=== PATIENT | female | born 2000 | race Caucasian/White ===

== ENCOUNTER 2022-09-15 19:01 | Emergency (ER) | payer BC, SELFPAY ==
[2022-09-15 19:16] VITALS: BP 128/82; PULSE 73; RESP 16; TEMP 36.6; O2SAT 100
--- NOTE | 2022-09-15 19:30 | DI.CT_ITS ---
Exam(s) CT ABDOMEN PELVIS W EXAM: CT ABDOMEN PELVIS W CLINICAL HISTORY: abdominal pain, periumbilical. TECHNIQUE: Imaging Protocol: Axial computed tomography images with coronal and sagittal reformatted images were created and reviewed CONTRAST MATERIAL: Intravenous: Omnipaque-350 100cc Oral: None COMPARISON: No exams were available for comparison FINDINGS: VISUALIZED LUNG BASES: There is a subpleural nodule in the lateral basal segment of the left lower lo be which measures 5 millimeters. No pleural effusions.. ABDOMEN: There is no ascites. LIVER: There are no focal hepatic lesions evident . GALLBLADDER/BILIARY: No obvious gallbladder pathology. CBD is not dilated. PANCREAS: No evidence of pancreatic mass nor dilatation of the pancreatic duct. SPLEEN: Spleen is not enlarged. No obvious intrasplenic lesions. Splenic and portal veins are paten t. ADRENALS: There are no significant adrenal masses. KIDNEYS:No cysts evident. No solid renal masses. No calculi nor hydronephrosis.. ABDOMINAL AORTA: Abdominal aorta is not enlarged. LYMPH NODES:There is no retroperitoneal nor paraaortic adenopathy. ABDOMINAL WALL: No evidence of significant anterior abdominal wall nor inguinal hernia. GI: There are fluid filled small bowel loops in the pelvis which exhibit upper normal luminal size.. No true bowel obstruction evident. PELVIS: GI: No evidence of appendicitis.No evidence of sigmoid diverticulitis. LYMPH NODES: There is no intrapelvic nor inguinal adenopathy. REPRODUCTIVE: There is no IUD in satisfactory position in the uterine canal. No abnormal adnexal mas ses. No free fluid. URINARY BLADDER: No calculi nor obvious masses evident OSSEOUS: No significant osseous lesions. IMPRESSION: 1. No significant acute findings in the abdomen pelvis. 2. IUD noted in the uterus which appears to be in satisfactory position no abnormal adnexal masses. No free fluid. 3. Incidentally noted is a small 5 millimeters subpleural nodule in the left lower lobe lateral basal segment. Requires appropriate follow-up. 4. RADIATION DOSE DELIVERED: 628.07mGy.cm Total DLP DATA REPOSITORY: All CT scans at this facility are submitted to the National Radiology Data Registry (NRDR) Dose Index Registry (DIR) with the [employer] ([employer]). RADIATION OPTIMIZATION: All CT scans at this facility use at least one of these dose optimization te chniques: automated exposure control; mA and/or kV adjustment per patient size (includes targeted exa ms where dose is matched to clinical indication); or iterative reconstruction.
[2022-09-15] MEDS: MORPHine 4 MG/ML SYR IVP (20:22)
[2022-09-15] MEDS: Normal Saline 1,000 ML 1000 ML IV (20:22)
[2022-09-15] MEDS: Ondansetron 4 MG/2 ML VIAL IVP ×2 (20:23→22:39)
[2022-09-15 20:26] LABS: Abs Immature Grans 0.05 10^3/uL (0.0-0.06); Absolute Basophil Count 0.03 10^3/uL (0.0-0.2); Absolute Eosinophil Count 0.05 10^3/uL (0.0-0.7); Absolute Lymphocyte Count 1.03 10^3/uL (1.2-3.4); Absolute Monocyte Count 0.72 10^3/uL (0.1-0.8); Basophils % 0.2; Eosinophils % 0.3; HCT 44.2 % (36.0-46.0); HGB 14.8 g/dL (11.2-15.7); Immature Grans % 0.3; MCH 29.8 pg (27.0-33.0); MCHC 33.5 % (32.0-36.0); MCV 89 fL (80-95); Monocytes % 4.2; RBC 4.96 10^6/uL (3.93-5.22); RDW 11.8 % (11.7-14.6); RDW-SD 37.6 fL; WBC 17.14 10^3/uL (4.4-10.8)
[2022-09-15 20:31] LABS: Absolute Neutrophil Count 15.25 10^3/uL (1.2-6.7)
[2022-09-15 20:32] LABS: Bilirubin Negative (Negative); Blood Trace-intact (Negative); Clarity Clear (Clear); Glucose Negative (Negative); Ketones Negative (Negative); Leukocyte Esterase Negative (Negative); Nitrite Negative (Negative); Specific Gravity >= 1.030 (1.005-1.025)
[2022-09-15 20:36] LABS: Bacteria Rare HPF (Negative); C & S Indicated? No; Casts Negative LPF (Negative); Crystals Negative HPF (Negative); Epithelial Cells Rare HPF (Negative); Mucus Moderate (Negative); WBC Negative HPF (0-5)
[2022-09-15 20:41] LABS: ALT 28 U/L (14-59); AST 20 U/L (15-37); Albumin 4.1 g/dL (3.4-5.0); Alkaline Phosphatase 91 U/L (46-116); Anion Gap 7.3 mmol/L (3-11); BUN 9 mg/dL (7-18); Bilirubin, Total 1.3 mg/dL (0.2-1.0); CO2 30.7 mmol/L (21.0-32.0); CREATININE 0.9 mg/dL (0.55-1.02); Calcium 8.8 mg/dL (8.5-10.1); Chloride 101 mmol/L (98-107); Estimated GFR 92.12 (mL/min/1.73m2); Glucose 105 mg/dL (74-106); Lipase 52 U/L (73-393); Potassium 3.1 mmol/L (3.5-5.1); Sodium 139 mmol/L (136-145); Total Protein 7.7 g/dL (6.4-8.2)
[2022-09-15 20:48] VITALS: BP 133/81; PULSE 50; RESP 16; O2SAT 98
[2022-09-15] MEDS: Normal Saline - Diluent 50 ML VIAL IJ (20:57)
[2022-09-15] MEDS: Omnipaque 350 MG/ML 100 ML BTL IJ (20:57)
--- NOTE | 2022-09-15 21:19 | DI.VRAD_ITS ---
PROCEDURE INFORMATION: Exam: CT Abdomen And Pelvis With Contrast Exam date and time: 09/15/2022 20:51 Age: 22 years old Clinical indication: Abdominal pain; Localized; Lower; Additional info: Lower abd pain TECHNIQUE: Imaging protocol: Computed tomography of the abdomen and pelvis with contrast. Radiation optimization: All CT scans at this facility use at least one of these dose optimization techniques: automated exposure control; mA and/or kV adjustment per patient size (includes targeted exams where dose is matched to clinical indication); or iterative reconstruction. Contrast material: OMNI 350; Contrast volume: 100 ml; Contrast route: INTRAVENOUS (IV); COMPARISON: No relevant prior studies available. FINDINGS: Liver: No mass. Gallbladder and bile ducts: No calcified stones. No ductal dilation. Pancreas: No ductal dilation. No masses. Spleen: No splenomegaly or focal lesions. Adrenal glands: No mass. Kidneys and ureters: No hydronephrosis. No renal masses. Stomach and bowel: Mildly fluid-filled loops of distal small bowel without wall thickening or focal transition point. No colitis or diverticular disease. Appendix: No evidence of appendicitis. Intraperitoneal space: No free air. No significant fluid collection. Vasculature: No abdominal aortic aneurysm. Lymph nodes: No significantly enlarged lymph nodes. Urinary bladder: Unremarkable as visualized. Reproductive: IUD in the uterus in the expected position. Bones/joints: No acute fracture. Soft tissues: No suspicious lesions. IMPRESSION: 1. No acute findings. 2. Incidental findings as described. Dictated and Authenticated by: Margret Lugo MD. Ordering:FRANSISCO Willard MD
--- NOTE | 2022-09-15 22:17 | W.ED.GENAD ---
Discharge Plan Disposition Patient Disposition: Home Condition: Stable Discharge Details Clinical Impression: Abdominal pain, Nausea & vomiting Primary Care Provider: None,None ED Provider: Montse Alexander Home Meds and New Rx's Prescriptions: New potassium chloride 20 mEq tablet extended release 40 meq PO DAILY Qty: 6 0RF Discharge Instructions Instructions: Acute Nausea and Vomiting (ED), Abdominal Pain (ED), Pulmonary Nodules (ED) Additional Instructions: Take Zofran as needed for nausea and vomiting Is given a very small amount of oxycodone, take this sparingly can cause constipation Take ibuprofen and Tylenol for pain Take potassium tomorrow if you are feeling symptomatically improved Recheck with your primary care physician in 24 to 48 hours and return earlier should you have new or worsening complaints Stand Alone Forms: Work Release Discharge Data Discharge Date/Time-TO BE ENTERED AT DEPARTURE: 09/15/22 22:30 Medical Decision Making This 22-year-old female who is otherwise reportedly healthy presents with report of periumbilical pain, nausea, vomiting. States the pain started prior to nausea and vomiting. Denies any change in discomfort since onset Patient appears uncomfortable She has tenderness in the periumbilical region Secondary to symptoms and tenderness on abdominal exam, CT abdomen and pelvis was ordered to evaluate for intra-abdominal pathology CT per radiology interpretation 1. No significant acute findings in the abdomen pelvis. 2. IUD noted in the uterus which appears to be in satisfactory position no abnormal adnexal masses.? No free fluid. 3. Incidentally noted is a small 5 millimeters subpleural nodule in the left lower lobe lateral basal segment.? Requires appropriate follow-up. Patient is feeling marked improvements She is able to tolerate p.o. She is requesting discharge home She does have leukocytosis, 17,000, mildly elevated bilirubin, however normal-appearing CT scan and feeling improvement, I see no indication for admission at this time, will give antiemetics for home Potassium slightly low at 3.1, given supplementation for home Reviewed findings nodule in the left lower lobe with need for follow-up, will refer back to primary care physician Return precautions discussed and patient expressed understanding Medical Records Medical records reviewed: Yes I reviewed the patient's medical records. Lab Data Lab results reviewed: Yes I reviewed the patient's lab results. HPI General Date/Time Provider Initiated Documentation: 09/15/22 19:35. HPI Narrative: This 22-year-old female presents with abdominal pain that started yesterday. Reports its periumbilical. Having trouble keeping foods down. Headache started today. Denies fever. Denies . Related Data Home Medications Medication Instructions Recorded Confirmed potassium chloride 20 mEq 40 meq PO DAILY #6 tabs 09/15/22 tablet,extended release Previous Rx's Medication Instructions Recorded potassium chloride 20 mEq 40 meq PO DAILY #6 tabs 09/15/22 tablet,extended release General Stated Complaint: Abd Prob NIRAJ: 3 Review of Systems All systems reviewed & are unremarkable except as noted in HPI and below PFSH All Active Problems (Updated 09/15/22 @ 22:05 by GABRIEL Gray) Abdominal pain (Acute) Nausea & vomiting (Acute) Social History Smoking risk assessment performed?: No Alcohol Intake: never Drug use: Daily Substance use type: marijuana Do you feel safe at home: Yes Do you feel safe in your relationship?: Yes Exam Const General: cooperative, comfortable and no acute distress HENMT Other: moist mucous membranes Eyes Sclera: sclerae normal Resp Effort & Inspection: normal respiratory effort Auscultation: clear to auscultation bilaterally Cardio Rate: regular rate Rhythm: regular rhythm GI Inspection: normal to inspection Other: Periumbilical tenderness with palpation, no CVA tenderness Skin General skin exam: no rashes or lesions noted Neuro General: patient alert and patient oriented x3 Course Vital Signs Vital signs: Vital Signs Temperature 36.6 C 09/15/22 19:16 Pulse 73 09/15/22 19:16 Respiratory Rate 16 09/15/22 19:16 Blood Pressure 128/82 09/15/22 19:16 Pulse Oximetry 100 09/15/22 19:16 Temperature 36.6 C 09/15/22 19:16 Temperature Source Oral 09/15/22 19:16 Pulse 50 L 09/15/22 20:48 Respiratory Rate 16 09/15/22 20:48 Respiratory Effort 09/15/22 19:23 Blood Pressure 133/81 09/15/22 20:48 Blood Pressure Position Sitting 09/15/22 19:16 Pulse Oximetry 98 09/15/22 20:48 Oxygen Delivery Method Room Air 09/15/22 20:48 Oxygen Flow Rate 0 09/15/22 20:48 Pain Level 6 09/15/22 20:50 Lab/Test Results Lab/Test Results: Laboratory Tests Range/Units 09/15/22 09/15/22 09/15/22 20:03 20:15 20:15 WBC (4.4-10.8) 10^3/uL 17.14 H RBC (3.93-5.22) 10^6/uL 4.96 Hgb (11.2-15.7) g/dL 14.8 Hct (36.0-46.0) % 44.2 MCV (80-95) fL 89 MCH (27.0-33.0) pg 29.8 MCHC (32.0-36.0) % 33.5 RDW (11.7-14.6) % 11.8 Plt Count (130-400) 10^3/uL MPV (8.0-11.0) fL Immature Gran % 0.3 Neutrophils % 89.0 Lymphocytes % 6.0 Monocytes % 4.2 Eosinophils % 0.3 Basophils % 0.2 Nucleated RBC % (0.0-0.3) % 0.0 Absolute Neutrophils (1.2-6.7) 10^3/uL 15.25 H Absolute Lymphocytes (1.2-3.4) 10^3/uL 1.03 L Absolute Monocytes (0.1-0.8) 10^3/uL 0.72 Absolute Eosinophils (0.0-0.7) 10^3/uL 0.05 Absolute Basophils (0.0-0.2) 10^3/uL 0.03 Sodium (136-145) mmol/L 139 Potassium (3.5-5.1) mmol/L 3.1 L Chloride (98-107) mmol/L 101 Carbon Dioxide (21.0-32.0) mmol/L 30.7 Anion Gap (3-11) mmol/L 7.3 BUN (7-18) mg/dL 9 Creatinine (0.55-1.02) mg/dL 0.9 Est GFR (CKD-EPI 2020) (mL/min/1.73m2) 92.12 Glucose (74-106) mg/dL 105 Calcium (8.5-10.1) mg/dL 8.8 Total Bilirubin (0.2-1.0) mg/dL 1.3 H AST (15-37) U/L 20 ALT (14-59) U/L 28 Alkaline Phosphatase (46-116) U/L 91 Total Protein (6.4-8.2) g/dL 7.7 Albumin (3.4-5.0) g/dL 4.1 Lipase (73-393) U/L 52 Urine Color (Yellow) Yellow Urine Clarity (Clear) Clear Urine pH (5-8) 6.0 Ur Specific [place] (1.005-1.025) >= 1.030 H Urine Protein (Negative) mg/dL 30 H Urine Ketones (Negative) mg/dL Negative Urine Blood (Negative) Trace-intact H Urine Nitrite (Negative) Negative Urine Bilirubin (Negative) Negative Urine Urobilinogen (Up TO 0.2) EU/dL 1.0 H Ur Leukocyte Esterase (Negative) Negative Urine RBC (0-2) HPF 3-5 H Urine WBC (0-5) HPF Negative Ur Epithelial Cells (Negative) HPF Rare Urine Crystals (Negative) HPF Negative Urine Bacteria (Negative) HPF Rare Urine Casts (Negative) LPF Negative Urine Mucus (Negative) Moderate Ur Culture Indicated? No Urine Glucose (Negative) mg/dL Negative
[2022-09-15 22:19] VITALS: BP 133/74; PULSE 56; RESP 16; TEMP 37; O2SAT 99
[2022-09-15] MEDS: Ketorolac 15 MG/ML VIAL IM (22:38)
== END 2022-09-15 22:30 | disposition home or self-care (01) ==
PROVIDERS: Emergency Provider Physician Assistant
DX: R10.33 Periumbilical pain (principal); R11.2 Nausea with vomiting, unspecified
CPT/HCPCS: 80053; 83690; 96361; 96372; 96374; 96375; 96376; 99285; 74177; 81003; 81015; 85025; 99284; J1885; J2270; J2405; J3490

== ENCOUNTER 2023-03-11 20:37 | Emergency (ER) | payer BC, SELFPAY ==
[2023-03-11 20:39] VITALS: BP 142/80; PULSE 91; RESP 18; TEMP 36.6; O2SAT 96
--- NOTE | 2023-03-11 20:45 | DI.RAD_ITS ---
Exam(s) XR CHEST 2V PA LATERAL EXAM: XR CHEST 2V PA LATERAL CLINICAL HISTORY: cough, eval for pneumonia TECHNIQUE: 2D digital imaging was performed of the chest. Two images were obtained. PA and lateral views were obtained. COMPARISON: No exams were available for comparison FINDINGS: MEDIASTINUM: Normal. HEART: Normal. PULMONARY VASCULATURE: Normal. LUNGS: Clear. PLEURAL SPACE: No pleural effusion or pneumothorax. BONE:Within normal limits for the patient's age. OTHER FINDINGS:Normal. IMPRESSION: No acute pulmonary findings. DATA REPOSITORY: RADIATION DOSE DELIVERED:
--- NOTE | 2023-03-11 20:51 | NUR.NOTE ---
Nursing Note: rapid strep neg flu-vid swab done pt in room, states hx of pna and that it only shows on x-ray even if her lungs sound clear pt speaking in full sentences
--- NOTE | 2023-03-11 20:56 | ED.GENADUL_ITS ---
Discharge Plan Disposition Patient Disposition: Home Condition: Good Discharge Details Clinical Impression: Acute upper respiratory infection, Cough Primary Care Provider: None,None ED Provider: Reid Deal Home Meds and New Rx's Prescriptions: New azithromycin 250 mg tablet See Rx Instructions .ROUTE .COMPLEX Qty: 6 0RF Rx Instructions: For 250 mg dose pack: take 500 mg today (day 1), then 250 mg for 4 days (days 2-5) No Action potassium chloride 20 mEq tablet extended release 40 meq PO DAILY Qty: 6 0RF Discharge Instructions Instructions: Upper Respiratory Infection (ED) Additional Instructions: At this time your COVID, flu, and RSV testing is negative. There is no evidence of significant infection noted on the x-ray. I suspect it is a virus causing your symptoms at this time. We will recommend continue Tylenol and Motrin for fever or chills. Recommend [id number] 10 mg of loratadine daily for treatment of the runny nose and congestion. Additionally if your symptoms persist over the next 48 to 72 hours then this may be reflective of development into a bacterial pneumonia. If you do notice worsening of your symptoms, please take the azithromycin as prescribed. If you notice any worsening of your symptoms, or any new symptoms such as vomiting, diarrhea, fever, chills, shortness of breath, chest pain, numbness, weakness, or fainting , please return immediately to the emergency department for reevaluation. Please follow up with your primary care provider as soon as possible for reassessment and reevaluation. As always, it was a pleasure participating in your medical care today. Medical Decision Making 23-year-old female with a past medical history of reactive airway disease, and previous walking pneumonia, presents today with complaints of upper respiratory symptoms. Patient states that about 3 days ago she developed sore throat congestion runny nose chills which gradually transition to a cough starting yesterday. She denies any significant productivity. She denies any chest pain. She denies any headache or neck pain. She did take a COVID test yesterday which was negative. She does work for [employer], but denies any sick contacts that she is aware of. She states that the symptoms are similar to her previous episodes of walking pneumonia. No other complaints at this time. No other modifying factors. Patient denies any current . has had a vasectomy. Exam demonstrates well-appearing female, lung sounds are clear, oxygenation excellent. Posterior pharynx demonstrates cobblestoning. No evidence of otitis media. No other abnormalities clinically. Differential includes viral upper respiratory infection leading to mild postnasal drip and cough, pneumonia is also on the differential. Symptoms inconsistent with PE or dissection. No evidence of tonsillitis. We will get a chest x-ray, test for flu COVID RSV and strep, monitor closely and reassess. 9:48 PM Laboratory work-up demonstrates negative COVID/flu/RSV. Strep test is negative. Chest x-ray negative for acute process. No evidence of pneumonia. With the patient's clinical history and current symptomatology I am concerned for early mild pneumonia. What we will do at this point is recommend continued supportive therapy, but I will give the patient a prescription for azithromycin from use. If her symptoms persist or worsen over the next 48 to 72 hours and will recommend transition to antibiotic therapy. In the meantime we will recommend loratadine, Tylenol and Motrin as needed. Discussed red flags for which to return. Patient otherwise notably stable. Symptoms inconsistent with PE. No evidence of sepsis. I have extensively reviewed the treatment plan and discharge instructions with the patient and their family. I have addressed all patient concerns at this time. The patient and family was made aware of what symptoms to monitor for that would warrant a return to the emergency department. Discussed the plan with the patient and family, they demonstrate verbal understanding and agreement with our assessment and plan at this time. The documentation in this chart was dictated using [employer] dictation software. Please excuse any dictation errors. FINDINGS: Lungs: Normal. Pleural spaces: Unremarkable. No pleural effusion. No pneumothorax. Heart/Mediastinum: Normal. Bones/joints: No acute abnormality. IMPRESSION: No acute findings. Thank you for allowing us to participate in the care of your patient. Dictated and Authenticated by: Toan Camarillo MD 03/11/2023 9:38 PM Eastern Time ([place] & [place]) HPI General Date/Time Provider Initiated Documentation: 03/11/23 20:38 . HPI Narrative: 23-year-old female with a past medical history of reactive airway disease, and previous walking pneumonia, presents today with complaints of upper respiratory symptoms. Patient states that about 3 days ago she developed sore throat congestion runny nose chills which gradually transition to a cough starting yesterday. She denies any significant productivity. She denies any chest pain. She denies any headache or neck pain. She did take a COVID test yesterday which was negative. She does work for [employer], but denies any sick contacts that she is aware of. She states that the symptoms are similar to her previous episodes of walking pneumonia. No other complaints at this time. No other modifying factors. Patient denies any current . has had a vasectomy. Related Data Home Medications Medication Instructions Recorded Confirmed potassium chloride 20 mEq 40 meq PO DAILY #6 tabs 09/15/22 tablet,extended release azithromycin 250 mg tablet See Rx Instructions PO .COMPLEX #6 03/11/23 tabs Previous Rx's Medication Instructions Recorded potassium chloride 20 mEq 40 meq PO DAILY #6 tabs 09/15/22 tablet,extended release azithromycin 250 mg tablet See Rx Instructions PO .COMPLEX #6 03/11/23 tabs Allergies Allergy/AdvReac Type Severity Reaction Status Date / Time No Known Allergies Allergy Unverified 03/11/23 21:04 General Stated Complaint: RespSymp NIRAJ: 3 Review of Systems All systems reviewed & are unremarkable except as noted in HPI and below PFSH All Active Problems (Updated 03/11/23 @ 21:50 by Ried Deal DO) Acute upper respiratory infection (Acute) Cough (Acute) Social History Smoking/Tobacco Use Status: Current every day Tobacco Type: e-cigarettes and smokeless tobacco Smoking risk assessment performed?: Yes Alcohol Intake: never Drug use: Daily Substance use type: marijuana Do you feel safe at home: Yes Do you feel safe in your relationship?: Yes Exam Narrative Exam Narrative: 1.Const: Well-nourished, Well-developed, appearing stated age 2.Eyes: PERRL, no conjunctival injection, and symmetrical lids. 3.ENT: Atraumatic external nose and ears. Moist MM. Neck: Symmetric, trachea midline, No thyromegaly. Minimal cobblestoning in the posterior oropharynx. No tonsillar edema, enlargement or exudate. 4.CVS: +S1/S2, No murmurs or gallops. Peripheral pulses 2+ and equal in all extremities. Brisk capillary refill in all extremities. 5.RESP: Unlabored respiratory effort. Clear to auscultation bilaterally. No wheezes rales or rhonchi 6.GI: Soft, Nontender/Nondistended, No hepatosplenomegaly. No guarding or rebound. 7.MSK: Normocephalic/Atraumatic, Extremities w/o deformity or ttp No cyanosis or clubbing, Normal movement of all extremities 8.Skin: Warm, Dry. No rashes or lesions. 9.Neuro: broom stitcher II-XII grossly intact. Sensation grossly intact, no focal neurologic deficits. 10.Psych: (AAO) x3. Appropriate mood and affect Course Vital Signs Vital signs: Vital Signs Temperature 36.6 C 03/11/23 20:39 Pulse 91 H 03/11/23 20:39 Respiratory Rate 18 03/11/23 20:39 Blood Pressure 142/80 H 03/11/23 20:39 Pulse Oximetry 96 03/11/23 20:39 Temperature 36.6 C 03/11/23 20:39 Temperature Source Oral 03/11/23 20:39 Pulse 91 H 03/11/23 20:39 Respiratory Rate 18 03/11/23 20:39 Respiratory Effort Normal, Non-Labored, Short of Breath 03/11/23 20:48 Respiratory Depth Normal 03/11/23 20:48 Blood Pressure 142/80 H 03/11/23 20:39 Blood Pressure Position Sitting 03/11/23 20:39 Pulse Oximetry 96 03/11/23 20:39 Oxygen Delivery Method Room Air 03/11/23 20:39 Oxygen Flow Rate 0 03/11/23 20:39 Pain Level 6 03/11/23 20:39
--- NOTE | 2023-03-11 21:39 | DI.VRAD_ITS ---
PROCEDURE INFORMATION: Exam: XR Chest Exam date and time: 03/11/2023 9:14 PM Age: 23 years old Clinical indication: Cough; Patient HX: Evaluate for pneumonia TECHNIQUE: Imaging protocol: Radiologic exam of the chest. Views: 2 views. COMPARISON: CT ABDOMEN PELVIS W 09/15/2022 8:51 PM FINDINGS: Lungs: Normal. Pleural spaces: Unremarkable. No pleural effusion. No pneumothorax. Heart/Mediastinum: Normal. Bones/joints: No acute abnormality. IMPRESSION: No acute findings. Dictated and Authenticated by: Toan Camarillo MD. Ordering:BRITTANIE Mathews MD
[2023-03-11 21:50] LABS: COVID-19 PCR Negative (Negative); Influenza A PCR Negative (Negative); Influenza B PCR Negative (Negative); RSV PCR Negative (Negative)
[2023-03-11 21:51] LABS: Source Nasopharynx
== END 2023-03-11 22:01 | disposition home or self-care (01) ==
PROVIDERS: Emergency Provider Student in an Organized Health Care Education/Training Program
DX: R05.9 Cough, unspecified (principal); R06.02 Shortness of breath; J06.9 Acute upper respiratory infection, unspecified; Z20.822 Contact with and (suspected) exposure to COVID-19
CPT/HCPCS: 87637; 99284; 71046; 87081

== ENCOUNTER 2024-04-04 16:18 | Emergency (ER) | payer BC, SELFPAY ==
[2024-04-04 16:21] VITALS: BP 156/73; PULSE 74; RESP 18; TEMP 37.2; O2SAT 99
[2024-04-04] MEDS: Acetaminophen 500 MG TAB 1000 MG PO (16:38)
[2024-04-04] MEDS: Ibuprofen 600 MG TAB PO (16:38)
[2024-04-04] MEDS: LORazepam 1 MG TAB PO (16:39)
--- NOTE | 2024-04-04 16:53 | DI.RAD_ITS ---
Exam(s) XR THUMB RT EXAM: XR THUMB RT CLINICAL HISTORY: trauma distal thumb. TECHNIQUE: 2D digital imaging was performed. COMPARISON: No exams were available for comparison FINDINGS: 3 views There is nondisplaced fracture of the tuft of the distal phalanx of the thumb. No radiopaque foreign body. No osseous lesions. No other fractures identified. IMPRESSION: Nondisplaced fracture of the tuft of the distal phalanx of the thumb. DATA REPOSITORY: RADIATION DOSE DELIVERED:
--- NOTE | 2024-04-04 17:15 | DI.VRAD_ITS ---
PROCEDURE INFORMATION: Exam: XR Right Finger(s) Exam date and time: 04/04/2024 4:50 PM Age: 24 years old Clinical indication: Injury or trauma; Other: Caught hand in car door; Sprain or strain; Right; Patient HX: Slammed hand in car door. Trauma distal thumb. TECHNIQUE: Imaging protocol: Radiologic exam of the right fingers. Views: Minimum 2 views. COMPARISON: No relevant prior studies available. FINDINGS: Bones/joints: Possible nondisplaced fracture of the 1st distal tuft. Soft tissues: Soft tissue swelling of the thumb. IMPRESSION: Possible nondisplaced fracture 1st distal tuft. Dictated and Authenticated by: Kelly Vazquez MD. Ordering:FRANSISCO Willard MD
--- NOTE | 2024-04-04 17:36 | ED.GENADUL_ITS ---
Discharge Plan Disposition Patient Disposition: Home Condition: Stable Discharge Details Clinical Impression: Avulsion fracture of thumb, Hematoma, subungual, thumb, right Primary Care Provider: Unknown,Unknown ED Provider: Montse Alexander Home Meds and New Rx's Prescriptions: Continued sertraline 50 mg tablet 50 mg PO DAILY Discharge Instructions Instructions: Finger fracture, Bruising Under the Nail Additional Instructions: Take ibuprofen and Tylenol as needed for pain Keep clean and dry Keep your splint in place and follow-up with orthopedics Please return earlier should you have fever, chills, redness, or with any new or worsening complaints Discharge Data Discharge Date/Time-TO BE ENTERED AT DEPARTURE: 04/04/24 17:54 HPI General Date/Time Provider Initiated Documentation: 04/04/24 16:27 . HPI Narrative: This 24-year-old female presents with injury to right thumb after slamming a car door just prior to arrival. Denies any additional complaints. Tetanus up-to-date. Denies chance of . Related Data Home Medications Medication Instructions Recorded Confirmed sertraline 50 mg tablet 50 mg PO DAILY 04/04/24 04/04/24 Allergies Allergy/AdvReac Type Severity Reaction Status Date / Time No Known Allergies Allergy Unverified 03/11/23 21:04 General Stated Complaint: Orthopedic NIRAJ: 4 Exam Narrative Exam Narrative: Right first digit with subungual hematoma, swelling, tenderness, acute distress to tuft of thumb Course Vital Signs Vital signs: Vital Signs Temperature 37.2 C 04/04/24 16:21 Pulse 74 04/04/24 16:21 Respiratory Rate 18 04/04/24 16:21 Blood Pressure 156/73 H 04/04/24 16:21 Pulse Oximetry 99 04/04/24 16:21 Temperature 37.2 C 04/04/24 16:21 Temperature Source Tympanic 04/04/24 16:21 Pulse 74 04/04/24 16:21 Respiratory Rate 18 04/04/24 16:21 Respiratory Effort Normal, Non-Labored 04/04/24 16:54 Blood Pressure 156/73 H 04/04/24 16:21 Pulse Oximetry 99 04/04/24 16:21 Oxygen Delivery Method Room Air 04/04/24 16:21 Oxygen Flow Rate 0 04/04/24 16:21 Pain Level 10 04/04/24 16:55 Procedures Nail Trephination Time out: Yes Location (finger): right Location (toes): first digit Sterile prep: chlorhexidine Method of drainage: nail cautery Procedure successful: Yes Patient tolerated procedure: well Complications: bleeding Nerve Block Nerve Block 1: Time out performed: Yes Local Anesthetic: Bupivicaine 0.5% Side: right Nerve Blocks: digital Procedure Successful: Yes Patient Tolerated Procedure: well Complications: none Medical Decision Making 24-year-old female presenting with distal tuft injury after closing nail in door. X-ray was ordered which shows a distal tuft fracture. Tetanus up-to-date. Subungual hematoma drained after digital block with good effect with nail trephination. Return precautions reviewed and patient expressed understanding. Placed in a splint and referred to orthopedics Quality:SDOH Health Related Social Needs: No Data to Display PFSH All Active Problems (Updated 04/04/24 @ 17:39 by GABRIEL Gray) Hematoma, subungual, thumb, right (Acute) Avulsion fracture of thumb (Acute) Social History Smoking/Tobacco Use Status: Current every day Tobacco Type: e-cigarettes and smokeless tobacco Smoking risk assessment performed?: Yes Alcohol Intake: never Drug use: Daily Substance use type: marijuana Do you feel safe at home: Yes Do you feel safe in your relationship?: Yes
[2024-04-04 17:53] VITALS: BP 156/73; PULSE 74; RESP 18; TEMP 37.2; O2SAT 99
== END 2024-04-04 17:54 | disposition home or self-care (01) ==
PROVIDERS: Emergency Provider Physician Assistant
DX: S67.01XA Crushing injury of right thumb, initial encounter (principal); W23.0XXA Caught, crushed, jammed, or pinched between moving objects, initial encounter
CPT/HCPCS: 99283; 73140; J0665

== ENCOUNTER 2024-04-05 21:13 | Emergency (ER) | payer BC, SELFPAY ==
[2024-04-05 21:17] VITALS: BP 132/72; PULSE 100; RESP 15; TEMP 36.8; O2SAT 99
--- NOTE | 2024-04-05 21:31 | ED.GENADUL_ITS ---
Discharge Plan Disposition Patient Disposition: Home Condition: Stable Discharge Details Clinical Impression: Subungual hematoma of right thumb Primary Care Provider: Unknown,Unknown ED Provider: Reid Flowers Home Meds and New Rx's Prescriptions: Continued sertraline 50 mg tablet 50 mg PO DAILY acetaminophen [Tylenol Extra Strength] 500 mg tablet 1,000 mg PO Q6H PRN Discharge Instructions Instructions: Hydrocodone and Acetaminophen, Bruising Under the Nail Additional Instructions: You were seen in the emergency department for your continued thumb pain and discoloration due to subungual hematoma. I am providing you with a small needle to try and keep the previously cauterized hole in your fingernail open. Please do not put significant pressure on the needle just spin it until you see some release of blood. Please use therapeutic dosing of Tylenol (acetamenophen) & Advil (ibuprofen) in an alternating fashion as follows: Take 1000mg of Tylenol every 6 hours without missing doses- that is 4 times per day. Wesley in between the Tylenol dosings, take 400-600mg of Advil also on a 6 hour schedule, that is also 4 times per day. The daily maximum dosing of Tylenol is 4000mg, and the daily maximum dosing of Advil is 2400mg. This is safe to do for weeks. Please note that some common cold medications & prescription pain medications may contain acetamenophen and you need to read OTC drug labels and factor that in to maximum daily dosings. Please note that the hydrocodone provided has 325 mg of Tylenol, do not exceed 1000 mg per dose of Tylenol. Please rest, ice, compress and elevate the thumb often, remain in your splint Discharge Data Discharge Date/Time-TO BE ENTERED AT DEPARTURE: 04/05/24 22:05 HPI General Date/Time Provider Initiated Documentation: 04/05/24 21:22 . HPI Narrative: 24 year-old female presents to ED today by POV/ambulating with her boyfriend with a chief complaint of continued R thumb pain after a visit to ED yesterday, diagnosed with minor avulsion fracture and subungual hematoma which had been cauterized to allow drainage- patient experiencing pain still, noncompliant with splint. Quality described as throbbing pain, no radiation to fever, complete numbness, inability to move thumb, active drainage from nail. Severity is described as 9/10. Palliating factors include nothing specific. Provoking factors include nothing specific. Patient not anticoagulated. Related Data Home Medications Medication Instructions Recorded Confirmed sertraline 50 mg tablet 50 mg PO DAILY 04/04/24 04/05/24 acetaminophen 500 mg tablet 1,000 mg PO Q6H PRN 04/05/24 04/05/24 (Tylenol Extra Strength) Allergies Allergy/AdvReac Type Severity Reaction Status Date / Time pineapple Allergy Severe Anaphylaxis Unverified 04/05/24 21:21 melatonin AdvReac Intermediate Nausea Unverified 04/05/24 21:21 prednisone AdvReac Mild Other (See Unverified 04/05/24 21:21 Comment) General Stated Complaint: Orthopedic NIRAJ: 4 Review of Systems All systems reviewed & are unremarkable except as noted in HPI and below Exam Narrative Exam Narrative: GENERAL APPEARANCE: Well-nourished, non-toxic, awake and alert, atraumatic, no acute distress. SKIN: Warm, pink, dry, intact, without rashes/lesions/ulcerations. HEAD: Normocephalic, atraumatic, normal hair distribution for gender/age. EYES: Pupils PERRLA, EOMs intact without nystagmus, normal conjunctiva, no exudates on lids/lashes. ENT: Nares patent, no circumoral cyanosis, no facial swelling NECK: Supple, trachea midline, painless cervical ROM. LUNGS/CHEST: Non-labored respirations, normal A/P diameter, symmetrical expansion, no chest wall deformity HEART (CV/PV): Regular rate, R radial pulse 2+ no peripheral edema, no JVD. ABDOMEN: Soft, non-distended, no guarding. MSK: Normal ROM, no swelling/deformity to bilateral UEs or LEs, moving all extremities without weakness, no cyanosis, spine midline without tenderness, normal curvature. R THUMB: Subungual hematoma present, mild ecchymosis, no felon, sensation intact distally, able to range the thumb with pain NEURO: Mental Status AAOx4 - alert to person, place, time, events No facial droop, no forehead involvement. Motor: No focal weakness - strength 5/5 in bilateral UEs and LEs, proximal and distal, symmetric. Sensory: sensation intact to light touch globally. Gait normal: patient ambulated without ataxia into ED room. PSYCH: euthymic, cooperative, pleasant, appropriate speech Course Vital Signs Vital signs: Vital Signs Temperature 36.8 C 04/05/24 21:17 Pulse 100 H 04/05/24 21:17 Respiratory Rate 15 04/05/24 21:17 Blood Pressure 132/72 04/05/24 21:17 Pulse Oximetry 99 04/05/24 21:17 Temperature 36.8 C 04/05/24 21:17 Temperature Source Tympanic 04/05/24 21:17 Pulse 100 H 04/05/24 21:17 Respiratory Rate 15 04/05/24 21:17 Respiratory Effort Normal 04/05/24 21:22 Blood Pressure 132/72 04/05/24 21:17 Blood Pressure Position Sitting 04/05/24 21:17 Pulse Oximetry 99 04/05/24 21:17 Oxygen Delivery Method Room Air 04/05/24 21:17 Oxygen Flow Rate 0 04/05/24 21:17 Medical Decision Making This dictation utilizes [id number] dictation software and may contain unedited grammatical errors. 24 year-old female presents to ED today by POV/ambulating with her boyfriend with a chief complaint of continued R thumb pain after a visit to ED yesterday, diagnosed with minor avulsion fracture and subungual hematoma which had been cauterized to allow drainage- patient experiencing pain still, noncompliant with splint. Quality described as throbbing pain, no radiation to fever, complete numbness, inability to move thumb, active drainage from nail. Severity is described as 9/10. Palliating factors include nothing specific. Provoking factors include nothing specific. Patients' medical history: Noncontributory. Family and social history: Noncontributory. Pertinent exam findings / vital signs include subungual hematoma of right thumb, able to range thumb with pain, sensation intact. Differential / pathologies of concern include subungual hematoma, fracture, noncompliant with splint. Diagnostic studies of: -None. Interventions of: -Offered to recauterize or medial the previous cauterized hole for subungual hematoma drainage, the patient refused this. ED Course/Assessment/Plan: 24-year-old female presents with continued pain and ecchymosis and hematoma from her right thumb fracture with subungual hematoma from a car door injury yesterday, was seen here in the ED, is noncompliant with her splint, recommend RICE therapy and therapeutic dosing Tylenol and ibuprofen provided significant reassurance, she may lose the fingernail, I offered to reopen the cautery hole that was made yesterday for further drainage but she refused, I did 4 tablets of hydrocodone for pain and encouraged her to aggressively RICE the thumb and use the air splint. Findings not consistent with neurovascular compromise. Disposition of subungual hematoma of right thumb. Patient verbalized understanding of the plan and return to ED criteria and engaged in shared decision making. Medical Records Medical records reviewed: Yes I reviewed the patient's medical records. Quality:SDOH Health Related Social Needs: No Data to Display PFSH All Active Problems (Updated 04/05/24 @ 21:57 by GABRIEL Arevalo) Subungual hematoma of right thumb (Acute) Hematoma, subungual, thumb, right (Acute) Avulsion fracture of thumb (Acute) Social History Smoking/Tobacco Use Status: Current every day Tobacco Type: e-cigarettes and smokeless tobacco Smoking risk assessment performed?: Yes Alcohol Intake: never Drug use: Daily Substance use type: marijuana Do you feel safe at home: Yes Do you feel safe in your relationship?: Yes
[2024-04-05 22:05] VITALS: BP 132/72; PULSE 100; RESP 15; TEMP 36.8; O2SAT 99
== END 2024-04-05 22:05 | disposition home or self-care (01) ==
PROVIDERS: Emergency Provider Physician Assistant
DX: S60.111A Contusion of right thumb with damage to nail, initial encounter; V49.9XXA Car occupant (driver) (passenger) injured in unspecified traffic accident, initial encounter
CPT/HCPCS: 99283